=== PATIENT | male | born 1955 | race Caucasian/White ===

== ENCOUNTER → 2017-02-03 | Outpatient (CLI) | payer OTHER ==
[~2017-02-03] MED LIST: DOXY100C2 PO; OPTIRAY 320 IV PRN
--- NOTE | 2017-02-03 09:44 | DIAGNOSTIC IMAGING REPORT ---
CT SCAN OF THE CHEST WITH IV CONTRAST CLINICAL HISTORY: Interstitial lung disease. Pulmonary nodules. COMPARISON STUDY: Chest x-ray dated 02/08/2016. Chest CT dated 02/14/2016. TECHNIQUE: Following the IV administration of 93 cc of Optiray 320, CT scan of the thorax was performed from the thoracic inlet to the upper abdomen. Images are reviewed in the axial, sagittal, and coronal planes. IV contrast was administered without complication. Note that the presence of IV contrast degrades assessment of the pulmonary interstitium. CT DOSE: 282.90 mGy.cm FINDINGS: Thyroid: Imaged portions of the thyroid gland are normal in size and attenuation. Thoracic aorta: The thoracic aorta is normal in caliber and demonstrates standard 3-vessel arch anatomy. No dissection is seen. Pulmonary vasculature: The pulmonary trunk is normal in caliber. There are no filling defects identified in the central pulmonary vessels to indicate pulmonary embolus. Note that this examination was not protocoled for evaluation of the pulmonary arteries. Heart: The heart is normal in size and configuration, and without pericardial effusion. Lungs and pleural spaces: There is no airspace consolidation or pleural effusion. Subpleural reticulation is seen throughout both lungs, greatest in the upper lobes. There are small foci of subpleural irregularity/fibrosis are again seen in the upper lobes. This is best seen on axial image #72. There is miliary centrilobular nodularity. The majority of these nodules measure 1 to 2 mm in size. A calcification containing nodule at the right apex is seen on image #53 and measures up to 8mm. A right upper lobe nodule along the major fissure on image #137 measures 6 mm. A left lower lobe nodule along the major fissure seen on image #144 measures 9 mm. There is no traction bronchiectasis or honeycombing. Numerous tiny calcified granulomas are observed. Mediastinum: There are numerous subcentimeter mediastinal lymph nodes. These are not pathologically enlarged by size criteria. Blanka: Mildly enlarged hilar lymph nodes measure up to 12 mm in short axis. Axillae: There is no axillary lymphadenopathy. Upper abdomen: There is evidence of hepatic steatosis. A small hiatal hernia is observed. Diverticula are noted in the partially imaged right colon. Skeletal structures: No lytic or blastic bony lesions are seen. IMPRESSION: 1. No significant change from 02/14/2016. 2. Interstitial lung disease with diffuse/miliary centrilobular nodularity as well as scattered calcified granulomas is again noted. Top differential considerations include sarcoidosis, silicosis or other pneumoconiosis, or chronic granulomatous infection. Clinical correlation will be required. 3. More focal subpleural opacities in the upper lobes likely represent fibrotic change/scarring. Neoplasm is considered unlikely. 4. Mildly enlarged hilar lymph nodes are likely related to chronic lung disease. 5. Hepatic steatosis. 6. Additional findings as above. Electronically signed by: Colby Foote M.D. 02/03/2017 9:42 AM Dictated Date/Time: 02/03/2017 9:34 AM
== END | disposition home or self-care (01) ==
LOC: C.CTS 09:09
PROVIDERS: ATTEND Nurse Practitioner
DX: J62.8 Pneumoconiosis due to other dust containing silica (principal); J84.9 Interstitial pulmonary disease, unspecified; R91.8 Other nonspecific abnormal finding of lung field; R59.9 Enlarged lymph nodes, unspecified; K76.0 Fatty (change of) liver, not elsewhere classified

== ENCOUNTER → 2017-05-05 | Outpatient (CLI) | payer OTHER ==
[~2017-05-05] MED LIST changes: -OPTIRAY 320 IV PRN
[2017-05-05 17:32] LABS: BASO % 0.3 %; BASO ABS # 0.02 K/uL (0-0.2); COMPLETE YES; EOS % 3.3 %; IG% 0.1 %; LYMPH % 30.7 %; LYMPH ABS # 2.21 K/uL (1.2-3.4); MEAN CELL VOLUME 94.9 fL (80-100); MEAN CORPUSCULAR HEMOGLOBIN 33.8 pg (25-34); MEAN CORPUSCULAR HGB CONC 35.6 g/dl (32-36); MEAN PLATELET VOLUME 11.2 fL (7.4-10.4); MONO % 11.5 %; NEUT % 54.1 %; PLATELET COUNT 188 K/uL (130-400); RED BLOOD COUNT 4.53 M/uL (4.7-6.1); WHITE BLOOD COUNT 7.21 K/uL (4.8-10.8)
[2017-05-05 17:43] LABS: BLOOD UREA NITROGEN 17 mg/dl (7-18); BUN/CREATININE RATIO 17.5 (10-20); CALCIUM 9.4 mg/dl (8.5-10.1); CARBON DIOXIDE 28 mmol/L (21-32); CHLORIDE 109 mmol/L (98-107); CREATININE 0.99 mg/dl (0.60-1.40); GLUCOSE 87 mg/dl (70-99); POTASSIUM 5.2 mmol/L (3.5-5.1); SODIUM 143 mmol/L (136-145)
[2017-05-05 17:48] LABS: ALB/GLOB RATIO 1.2 (0.9-2); ALKALINE PHOSPHATASE 73 U/L (45-117); ALT/SGPT 18 U/L (12-78); AST/SGOT 17 U/L (15-37)
== END | disposition home or self-care (01) ==
LOC: C.LABBFT 15:31
PROVIDERS: ATTEND Internal Medicine
DX: K76.0 Fatty (change of) liver, not elsewhere classified (principal); E55.9 Vitamin D deficiency, unspecified; R53.83 Other fatigue

== ENCOUNTER → 2017-05-13 | Outpatient (CLI) | payer OTHER ==
--- NOTE | 2017-05-13 08:06 | DIAGNOSTIC IMAGING REPORT ---
(LIVER) ABDOMEN LIMITED HISTORY: 61 years-old Male K76.0 Hepatic [id number] COMPARISON: CT abdomen and pelvis 12/04/2015 TECHNIQUE: Multiple real-time sonographic images of the abdominal right upper quadrant were obtained assessing grayscale appearance and color Doppler flow. FINDINGS: The imaged portions of the pancreas are unremarkable with the majority of the body and the tail obscured by bowel gas. Liver measures up to 14.6 cm in length. Liver is mildly heterogeneous and slightly echogenic. No focal mass lesions or intrahepatic biliary ductal dilation. Gallbladder is unremarkable without shadowing cholelithiasis, color wall thickening or pericholecystic fluid collections. Common bile duct is normal, 0.4 cm. The imaged right kidney is unremarkable without hydronephrosis or renal calculi. IMPRESSION: 1. Mildly heterogeneous and echogenic appearance of the liver may reflect mild fatty infiltration. 2. No cholelithiasis or biliary ductal dilation. The above report was generated using voice recognition software. It may contain grammatical, syntax or spelling errors. Electronically signed by: Johann Honeycutt M.D. 05/13/2017 8:05 AM Dictated Date/Time: 05/13/2017 8:02 AM
== END | disposition home or self-care (01) ==
LOC: C.ULTR 06:27
PROVIDERS: ATTEND Internal Medicine
DX: K76.0 Fatty (change of) liver, not elsewhere classified (principal)